=== PATIENT | male | born 1950 | race Caucasian/White ===

== ENCOUNTER 2022-10-25 16:56 | Emergency (ER) | payer MEDICARE, OTHER, SELFPAY ==
[2022-10-25] VITALS (7 sets, daily range): BP systolic 85–147; BP diastolic 53–75; PULSE 90–101; RESP 16–22; TEMP 36.3; O2SAT 95–98; BMI 29.0
--- NOTE | 2022-10-25 17:28 | DI.RAD.S_ITS ---
PROCEDURE: XR CHEST 1V INDICATIONS: shortness of breath dizziness TECHNIQUE: One view of the chest was acquired. COMPARISON: None. FINDINGS: Surgical changes and devices: None. Lungs and pleura: Mild appearance of interstitial prominence is present. Mediastinum: Mediastinal contours appear normal. Heart size is normal. Bones and chest wall: Increased areas of osseous density are noted. Overlying soft tissues appear unremarkable. IMPRESSION: Mild increased interstitial prominence which could represent edema versus developing airspace disease such as pneumonia. Mild areas of increased osseous density, suspicious for bone lesions. 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 Dictated by: Terra Butler M.D. on 10/25/2022 at 17:46 Approved by: Terra Butler M.D. on 10/25/2022 at 17:47
[2022-10-25 18:10] LABS: Add Manual Diff / Slide Review NO; Basophils Absolute Auto 0 /uL (0-100); Basophils Percent Auto 0.2 % (0-2); Eosinophils Absolute Auto 0 /uL (0-450); Eosinophils Percent Auto 0.7 % (2-4); Hematocrit 30.6 % (41-53); Hemoglobin 10.3 g/dL (13.5-17.5); Lymphocytes Absolute Auto 500 /uL (1100-4500); Lymphocytes Percent Auto 10.2 % (25-40); Mean Corpuscular HGB Conc 33.6 % (30-36); Mean Corpuscular Hemoglobin 28.3 PG (26-34); Mean Corpuscular Volume 84.3 fL (80-100); Monocytes Absolute Auto 500 /uL (0-900); Monocytes Percent Auto 9.9 % (3-14); Neutrophils Absolute Auto 4000 /uL (1500-7000); Platelet Count 217 X10^3/uL (150-400); Red Blood Cell Count 3.63 X10^6/uL (4.5-5.9); Red Cell Distribution Width 17.9 % (11.6-14.8)
[2022-10-25 18:19] LABS: INR 1.8 (0.9-1.3)
[2022-10-25] MEDS: ASPIRIN 81 MG CHEW TAB 324 MG PO (18:19)
[2022-10-25 18:21] LABS: PTT Partial Thromboplastin Tim 42 SECONDS (26-36)
[2022-10-25 18:22] LABS: Alanine Aminotransferase 15 IU/L (<50); Albumin 3.5 g/dL (3.5-5.0); Albumin Globulin Ratio 1.2 (1.0-2.8); Alkaline Phosphatase 808 U/L (38-126); Aspartate Aminotransferase 28 IU/L (17-59); Bilirubin Total 0.6 mg/dL (0.2-1.3); Blood Urea Nitrogen 9 mg/dL (9-20); Calcium 8.4 mg/dL (8.4-10.2); Carbon Dioxide 25 mmol/L (22-32); Chloride 103 mmol/L (98-107); Creatine Kinase 109 U/L (55-170); Estimated Glomerular Filt Rate > 60 mL/min (>60); Glucose 165 mg/dL (80-110); HEMOLYSIS < 15 (0-50); Lipase 25 U/L (23-300); Magnesium 2.2 mg/dL (1.6-2.3); Potassium 3.2 mmol/L (3.4-5.1); Sodium 134 mmol/L (137-145); Total Protein 6.5 g/dL (6.3-8.2)
[2022-10-25 18:34] LABS: Troponin I < 0.012 ng/mL (0.01-0.034)
--- NOTE | 2022-10-25 19:52 | ED.GENADULT ---
HPI - General Adult General Chief complaint: Weakness Stated complaint: Cancer dx, afib, low BP Time Seen by Provider: 10/25/22 18:02 Source: patient Mode of arrival: Wheelchair History of Present Illness HPI narrative: Patient is a 72-year-old male. He is from [place]. He is here visiting family and also getting some other medical procedures performed. He does have a history of prostate cancer. Has known Mets to this. Also has a history of atrial fibrillation. Is on metoprolol and diltiazem. He has been on this for the past month or so. He is also on anticoagulation. He was told that when he returns back home the plan is to do a cardioversion. He is not had any changes in his metoprolol diltiazem. He states that for the past 2 days family has been checking his blood pressure and he is had episodes where his blood pressure has been low. He also has episodes where his heart rate is low as well. He has been more fatigued recently. Is having some nausea. He does take his metoprolol in the morning and at night and diltiazem in the morning. He denies chest pain. No shortness of breath. No extremity pain. Related Data Allergies Allergy/AdvReac Type Severity Reaction Status Date / Time No Known Drug Allergies Allergy Verified 10/25/22 17:18 Review of Systems Review of Systems ROS Unobtainable: All systems reviewed & are unremarkable except as noted in HPI and below Patient History Social History Smoking Status: Current some day smoker Smoking Status: Current some day smoker tobacco type: cigarettes Substance Use Type: does not use Exam Initial Vital Signs Initial Vital Signs: Vital Signs Temperature 97.4 F L 10/25/22 17:18 Pulse Rate 95 H 10/25/22 17:18 Respiratory Rate 16 10/25/22 17:18 Blood Pressure 85/53 L 10/25/22 17:18 Pulse Oximetry 98 10/25/22 17:18 Oxygen Delivery Method Room Air 10/25/22 17:18 Const General: cooperative and comfortable HENMT Head: normal to inspection and normocephalic Resp Effort & Inspection: normal respiratory effort Auscultation: clear to auscultation bilaterally Cardio Rate: regular rate Rhythm: regular rhythm GI Inspection: normal to inspection and non-distended Skin General: no rashes or lesions noted Neuro General: patient alert, patient awake and moves all extremities Extrem General: normal to inspection and capillary refill normal Course Orders Ordered: ED Orders 10/25/22 18:00 Complete Blood Count AUTO DIFF Stat Comprehensive Metabolic Panel Stat Lipase Stat Magnesium Stat PTT Partial Thromboplastin Dain Stat Prothrombin Time INR Stat Troponin & CK Cardiac Panel Stat Discontinued Medications Aspirin (Aspirin 81 Mg Chew Tab) 324 mg PO NOW ONE Stop: 10/25/22 17:29 Last Admin: 10/25/22 18:19 Dose: 324 mg Documented By: RB Vital Signs Vital signs: Vital Signs - 8 hr 10/25/22 19:00 10/25/22 19:00 10/25/22 20:02 Pulse Rate 101 H 98 H Respiratory Rate 18 18 Blood Pressure 124/74 131/75 Pulse Oximetry 96 98 Oxygen Delivery Method Room Air Medical Decision Making Lab Data Lab results reviewed: Yes I reviewed the patient's lab results. 10/25/22 18:00 10/25/22 18:00 Labs: Lab Results 10/25/22 10/25/22 10/25/22 Range/Units 18:00 18:00 18:00 WBC 5.0 (4.5-11.0) X10^3/uL RBC 3.63 L (4.5-5.9) X10^6/uL Hgb 10.3 L (13.5-17.5) g/dL Hct 30.6 L (41-53) % MCV 84.3 (80-100) fL MCH 28.3 (26-34) PG MCHC 33.6 (30-36) % RDW 17.9 H (11.6-14.8) % Plt Count 217 (150-400) X10^3/uL Neut % (Auto) 79.0 H (50-75) % Lymph % (Auto) 10.2 L (25-40) % [place] % (Auto) 9.9 (3-14) % Eos % (Auto) 0.7 L (2-4) % Baso % (Auto) 0.2 (0-2) % Neut # (Auto) 4000 (3333-8365) /uL Lymph # (Auto) 500 L (7245-1426) /uL [place] # (Auto) 500 (0-900) /uL Eos # (Auto) 0 (0-450) /uL Baso # (Auto) 0 (0-100) /uL PT 21.0 H (10.1-12.7) SECONDS INR 1.8 H (0.9-1.3) APTT 42 H (26-36) SECONDS Sodium 134 L (137-145) mmol/L Potassium 3.2 L (3.4-5.1) mmol/L Chloride 103 (98-107) mmol/L Carbon Dioxide 25 (22-32) mmol/L BUN 9 (9-20) mg/dL Creatinine 0.50 L (0.66-1.25) mg/dL Estimated GFR > 60 (>60) mL/min BUN/Creatinine Ratio 18.0 (6-22) Glucose 165 H (80-110) mg/dL Calcium 8.4 (8.4-10.2) mg/dL Magnesium 2.2 (1.6-2.3) mg/dL Total Bilirubin 0.6 (0.2-1.3) mg/dL AST 28 (17-59) IU/L ALT 15 (<50) IU/L Alkaline Phosphatase 808 H (38-126) U/L Total Creatine Kinase 109 (55-170) U/L CK-MB (CK-2) TNP CK-MB (CK-2) Rel Index TNP Troponin I < 0.012 (0.01-0.034) ng/mL Total Protein 6.5 (6.3-8.2) g/dL Albumin 3.5 (3.5-5.0) g/dL Globulin 3.0 (1.7-4.1) g/dL Albumin/Globulin Ratio 1.2 (1.0-2.8) Lipase 25 (23-300) U/L Imaging Data Chest x-ray: Radiologist's Impression: PROCEDURE:? XR CHEST 1V ? INDICATIONS:? shortness of breath dizziness ? TECHNIQUE:? One view of the chest was acquired.? ? COMPARISON:? None. ? FINDINGS:? ? Surgical changes and devices:? None.? ? Lungs and pleura:? Mild appearance of interstitial prominence is present. ? Mediastinum:? Mediastinal contours appear normal.? Heart size is normal.? ? Bones and chest wall:? Increased areas of osseous density are noted.? Overlying soft tissues appear unremarkable.? ? IMPRESSION:? ? Mild increased interstitial prominence which could represent edema versus developing airspace disease such as pneumonia. ? Mild areas of increased osseous density, suspicious for bone lesions.? 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 ECG Data Attestation: I personally reviewed and interpreted this ECG as follows: Interpretation: Atrial flutter Ventricular rate of [address] wave changes MDM Narrative Medical decision making narrative: Patient's heart rate is now in the 90s. He is in AFib/a flutter. His labs are unremarkable. His blood pressure is better. Feels somewhat better. I do have some concern that potentially the medication that he is on could be causing him to become bradycardic and maybe even hypotensive. He does not know the dose of metoprolol that he is on but the plan will be for him to cut his metoprolol in half. He will continue his diltiazem at the current dose. He is going to continue to take his blood pressure and heart rate at home. If his heart rate gets above 105 he will take the other half of his metoprolol. Will discharge patient way. No suspicion of any infections. Patient states he feels comfortable going home and he will contact his primary doctor Discharge Plan Departure Patient Disposition: Home Clinical Impression: A-fib Instructions: DI for Atrial Fibrillation Activity Restrictions/Additional Instructions: They do recommend that you cut your dose of metoprolol in half however still take it twice a day. Be sure that you are taking your heart rate at home like we discussed. 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 Return to the emergency department for new or worsening symptoms. Stand Alone Forms: Patient Portal/API
== END 2022-10-25 20:12 | disposition home or self-care (01) ==
PROVIDERS: Emergency Medicine; Emergency Provider Emergency Medicine
DX: I48.91 Unspecified atrial fibrillation (principal); R06.02 Shortness of breath; R42 Dizziness and giddiness; Z79.01 Long term (current) use of anticoagulants
CPT/HCPCS: 36415; 71045; 80053; 82550; 83690; 83735; 84484; 85025; 85610; 85730; 93005; 99284